=== PATIENT | male | born 1965 | race Caucasian/White ===

== ENCOUNTER 2020-12-16 21:56 | Emergency (ER) | payer MEDICAID ==
[~2020-12-16] VITALS: Ht 177.8 cm; Wt 111.1 kg
[2020-12-16] MEDS ORDERED: PANTOPRAZOLE SODIUM 40 MG TAB ONE (22:35)
[2020-12-16 22:45] VITALS: BP_SYST 141
--- NOTE | 2020-12-16 22:45 | NUR ---
PT TO REMAIN IN THE ER LOBBY UNTIL ER BED BECOMES AVAILABLE.
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
--- NOTE | 2020-12-16 23:50 | NUR ---
DR. MURRIETA TO TRIAGE TO ASSESS.
--- NOTE | 2020-12-17 00:34 | NUR ---
PT TO CHAIR 1 IN [facility] FOR EVALUATION.
[2020-12-17] MEDS ORDERED: AMOXICILLIN/CLAVULANATE POTASSIUM 875 MG TABLET PO ONE (01:45)
[2020-12-17] MEDS ORDERED: IBUPROFEN 600 MG TABLET PO ONE ×2 (01:45)
[2020-12-17] MEDS ORDERED: AMOX-426 PO (02:15)
[2020-12-17] MEDS ORDERED: IBUP-1969 PO (02:15)
--- NOTE | 2020-12-17 02:25 | NUR ---
Patient given written and verbal discharge instructions and verbalizes understanding. DR. LIT CARLOS MD discussed with patient the results and treatment provided. Patient in stable condition. ID arm band removed. Rx PER MD.Patient educated on pain management and to follow up with PMD. Pain Scale 0/10. Opportunity for questions provided and answered. Medication side effect fact sheet provided.
[2020-12-17 02:30] VITALS: BP_SYST 141
== END 2020-12-17 02:25 | disposition home or self-care (01) ==
LOC: SED 21:56
DX: L03.012 Cellulitis of left finger (principal)
CPT/HCPCS: 99283